=== PATIENT | female | born 2000 | race Caucasian/White ===

== ENCOUNTER → 2022-06-21 | Outpatient (CLI) | payer BC, SELFPAY ==
[2022-06-21 13:45] VITALS: BP 122/64; PULSE 62; RESP 16; TEMP 36.3; O2SAT 100; BMI 32.3
[2022-06-21] MEDS: 0.9% NaCl Peripheral Flush Adult/Peds IV (13:49)
[2022-06-21] MEDS: Ondansetron 4 MG/2 ML Vial IV (13:58)
[2022-06-21] MEDS: Dextrose 5%-Lactated Ringers 1,000 ML 999 ML IV (13:58)
[2022-06-21 15:15] VITALS: BP 144/56; PULSE 69; RESP 16
== END | disposition home or self-care (01) ==
PROVIDERS: Referring Provider Nurse Practitioner Women's Health; Visit Provider Nurse Practitioner Women's Health
DX: E86.0 Dehydration (principal)
CPT/HCPCS: 96372; 96365; 96361; A4216; J2405

== ENCOUNTER → 2022-07-07 | Outpatient (CLI) | payer BC, SELFPAY ==
[2022-07-10 22:06] LABS: Chlamydia By Nucleic Acid AMP Negative (Negative)
[2022-07-11 07:50] LABS: Gonococcus By Nucleic Acid AMP Negative (Negative)
== END | disposition home or self-care (01) ==
LOC: LABSPEC 16:53
PROVIDERS: Referring Provider Obstetrics & Gynecology; Visit Provider Obstetrics & Gynecology
DX: O09.90 Supervision of high risk pregnancy, unspecified, unspecified trimester (principal); Z3A.00 Weeks of gestation of pregnancy not specified
CPT/HCPCS: 87491; 87591

== ENCOUNTER → 2022-08-03 | Outpatient (CLI) | payer BC, SELFPAY ==
[2022-08-03 15:21] LABS: Absolute Lymphocyte Count 2.34 X10^3/uL (0.83-4.51); Absolute Neutrophil Count 5.1 X10^3/uL (2.0-7.7); Basophil# 0.04 X10^3/uL; Basophil% 0.5 % (0-1); Eosinophil# 0.09 X10^3/uL; Eosinophils% 1.1 % (0-5); Hemoglobin 12.9 g/dL (12.0-15.0); Lymphocyte # 2.34 X10^3/ul (0.83-4.51); Lymphocyte % 28.6 % (19-41); Mean Corp Hgb Conc 34.9 g/dL (32-36); Mean Corpuscular Hgb 28.6 pg (27.0-32.0); Mean Platelet Vol. 10.8 fl (6.2-12.0); Monocyte# 0.56 X10^3/uL; Monocyte% 6.8 % (0-10); NRBC Flagged by Analyzer 0 % (0-5); Neutrophil # 5.14 X10^3/uL (2.7-7.7); Neutrophil % 62.8 % (47-70); Platelet Count 210 K/mm3 (150-450); RBC Distribution Width CV 13.6 % (11.6-14.6); RBC Distribution Width SD 40.5 fl (35.1-43.9); Red Blood Count 4.51 M/mm3 (4.2-5.4); White Blood Count 8.2 K/mm3 (4.4-11.0)
[2022-08-03 16:08] LABS: NATERA MAILED SPECIMEN
[2022-08-03 16:21] LABS: HIV - WCH Non-Reactive (Nonreactive); Hepatitis B Surface Antigen Non-Reactive (Nonreactive); Hepatitis C Antibody Non-Reactive (Nonreactive); Rubella IgG Reactive (Nonreactive); Syphilis Antibodies Non-reactive
== END | disposition home or self-care (01) ==
PROVIDERS: Referring Provider Obstetrics & Gynecology; Visit Provider Obstetrics & Gynecology
DX: Z34.82 Encounter for supervision of other normal pregnancy, second trimester (principal); Z3A.00 Weeks of gestation of pregnancy not specified
CPT/HCPCS: 36415; 85025; 86703; 86762; 86780; 86803; 86850; 86900; 86901; 87086; 87088; 87340

== ENCOUNTER → 2022-09-28 | Outpatient (CLI) | payer BC, SELFPAY ==
[2022-09-28 15:03] LABS: Absolute Lymphocyte Count 2.39 X10^3/uL (0.83-4.51); Absolute Neutrophil Count 4.8 X10^3/uL (2.0-7.7); Basophil# 0.03 X10^3/uL; Basophil% 0.4 % (0-1); Eosinophil# 0.08 X10^3/uL; Hemoglobin 11.7 g/dL (12.0-15.0); Lymphocyte # 2.39 X10^3/ul (0.83-4.51); Lymphocyte % 30.3 % (19-41); Mean Corp Hgb Conc 34.4 g/dL (32-36); Mean Corpuscular Hgb 29.5 pg (27.0-32.0); Mean Corpuscular Volume 85.6 fL (81-99); Mean Platelet Vol. 11.1 fl (6.2-12.0); Monocyte% 7.6 % (0-10); NRBC Flagged by Analyzer 0 % (0-5); Neutrophil # 4.76 X10^3/uL (2.7-7.7); Neutrophil % 60.2 % (47-70); Platelet Count 195 K/mm3 (150-450); RBC Distribution Width CV 13.2 % (11.6-14.6); Red Blood Count 3.97 M/mm3 (4.2-5.4); White Blood Count 7.9 K/mm3 (4.4-11.0)
[2022-09-28 15:28] LABS: Glucose Challenge Gest 1H 50g 109 mg/dL (70-140)
[2022-09-28 16:17] LABS: HIV - WCH Non-Reactive (Nonreactive); Syphilis Antibodies Non-reactive
== END | disposition home or self-care (01) ==
LOC: PAVLAB 14:29
PROVIDERS: Referring Provider Advanced Practice Midwife; Visit Provider Advanced Practice Midwife
DX: Z34.90 Encounter for supervision of normal pregnancy, unspecified, unspecified trimester (principal)
CPT/HCPCS: 36415; 82950; 85025; 86703; 86780

== ENCOUNTER → 2022-11-16 | Outpatient (CLI) | payer BC, SELFPAY ==
[2022-11-16 13:17] LABS: Absolute Lymphocyte Count 2.36 X10^3/uL (0.83-4.51); Absolute Neutrophil Count 7.1 X10^3/uL (2.0-7.7); Basophil# 0.04 X10^3/uL; Basophil% 0.4 % (0-1); Eosinophil# 0.07 X10^3/uL; Eosinophils% 0.7 % (0-5); Hematocrit 35.7 % (37-47); Hemoglobin 11.7 g/dL (12.0-15.0); Lymphocyte # 2.36 X10^3/ul (0.83-4.51); Lymphocyte % 22.9 % (19-41); Mean Corp Hgb Conc 32.8 g/dL (32-36); Mean Corpuscular Hgb 28.4 pg (27.0-32.0); Mean Corpuscular Volume 86.7 fL (81-99); Mean Platelet Vol. 11.1 fl (6.2-12.0); Monocyte# 0.65 X10^3/uL; Monocyte% 6.3 % (0-10); NRBC Flagged by Analyzer 0 % (0-5); Neutrophil # 7.08 X10^3/uL (2.7-7.7); Neutrophil % 68.7 % (47-70); Platelet Count 235 K/mm3 (150-450); RBC Distribution Width CV 12.6 % (11.6-14.6); RBC Distribution Width SD 39.6 fl (35.1-43.9); Red Blood Count 4.12 M/mm3 (4.2-5.4); White Blood Count 10.3 K/mm3 (4.4-11.0)
[2022-11-16 13:35] LABS: Glucose Challenge Gest 1H 50g 95 mg/dL (70-140)
[2022-11-16 14:11] LABS: HIV - WCH Non-Reactive (Nonreactive); Syphilis Antibodies Non-reactive
== END | disposition home or self-care (01) ==
PROVIDERS: Referring Provider Obstetrics & Gynecology; Visit Provider Obstetrics & Gynecology
DX: O09.90 Supervision of high risk pregnancy, unspecified, unspecified trimester (principal); Z13.1 Encounter for screening for diabetes mellitus; Z3A.00 Weeks of gestation of pregnancy not specified
CPT/HCPCS: 36415; 82950; 85025; 86703; 86780

== ENCOUNTER → 2023-01-11 | Outpatient (CLI) | payer BC, SELFPAY | END | disposition home or self-care (01) | LOC: LABSPEC 13:30 | PROVIDERS: Referring Provider Obstetrics & Gynecology; Visit Provider Obstetrics & Gynecology | DX: Z34.90 Encounter for supervision of normal pregnancy, unspecified, unspecified trimester (principal) | CPT/HCPCS: 87081 ==

== ENCOUNTER 2023-01-26 17:12 | Outpatient (CLI) | payer BC, OTHER, SELFPAY ==
[2023-01-26 17:31] VITALS: BP 116/56; PULSE 68; TEMP 36.6; O2SAT 99
[2023-01-26 17:35] VITALS: BMI 37.5
--- NOTE | 2023-01-26 17:56 | OB.TRI.PN_ITS ---
Progress Notes Date of Service: 01/26/23 Progress Note: Patient presents for triage evaluation secondary to contractions FHT: 125 Moderate variability reactive no decelerations category I tracing Startex: mild irregular Contractions- no cervical change from office visit Assessment and plan: Reactive NST, reassuring maternal and status patient discharged to home to follow-up in office. See problem list details for additional plan information. Charges/Coding Multi Select Codes Urinary/Genital Urinary/Genital CPT Codes: 74126-99 non-stress test Interp Assessment & Plan (1) Uterine size-date discrepancy, third trimester: COMMENT: growth us (2) Obesity affecting , antepartum: COMMENT: 1 TM GCT, encouraged healthy weight gain start nsts at 37 (3) Supervision of high risk , antepartum: COMMENT: PRR BERNADETTE 02/09/23 girl Solar Jean (4) : QUALIFIERS: Weeks of gestation: 38 weeks Qualified Code(s): Z3A.38 - 38 weeks gestation of COMMENT: GBS Negative, NIPT low risk afp declined. Declines carrier screen. anatomy nl (5) Uterine contractions: COMMENT: no cervical change. reactive NST. D/C home
== END 2023-01-26 18:10 | disposition home or self-care (01) ==
LOC: WPOUT 17:19 → WP 17:20
PROVIDERS: Referring Provider Advanced Practice Midwife; Visit Provider Advanced Practice Midwife
DX: O47.1 False labor at or after 37 completed weeks of gestation (principal); Z3A.38 38 weeks gestation of pregnancy; O99.213 Obesity complicating pregnancy, third trimester; Z03.74 Encounter for suspected problem with fetal growth ruled out
CPT/HCPCS: 59025; 59050; 99221; G0378

== ENCOUNTER 2023-02-02 15:20 | Outpatient (CLI) | payer BC, OTHER, SELFPAY ==
[2023-02-02 15:59] VITALS: BP 109/61; PULSE 78
--- NOTE | 2023-02-02 16:03 | US_ITS ---
STUDY: OBSTETRICAL ULTRASOUND - BIOPHYSICAL PROFILE REASON FOR EXAM: Female, 22 years old decreased movement LMP: 05/05/2022 PRIOR ULTRASOUND: None. TECHNIQUE: Transabdominal TECHNICAL QUALITY: Adequate. FINDINGS: There is a single intrauterine fetus. The fetus is in a cephalic presentation. There is demonstrated cardiac activity with a heart rate of 140 bpm. There is a normal amniotic fluid volume. The largest amniotic fluid pocket measures 5.1 cm. The amniotic fluid index (ABIGAIL) is 16.2 cm. The placenta is posterior in location and is not low lying. There are Grade 1 placental changes. Age by LMP: 39 weeks, 0 days. BERNADETTE by LMP: 02/09/2023. BIOPHYSICAL PROFILE: Breathing Movements (FBM): 2 Gross Body Movements (GBM): 2 Tone (FT): 2 Amniotic Fluid Volume (AFV): 2 TOTAL SCORE: US/Biophysical Prof W/O Non Stres IMPRESSION: Normal biophysical profile of 10/31. Electronically Signed: Layton Haney MD at 17:23 EST ,
[2023-02-02 16:40] VITALS: BP 128/72; PULSE 78; TEMP 36.7
--- NOTE | 2023-02-02 21:45 | OB.TRI.NOTE ---
HPI - General General Date of Admission: 02/02/23 HPI Narrative RIGO ORR, is a 22 y/o @ 39 weeks 1 day who presents to L&D for prolonged monitoring due to anon-reactive NST in our office today. The NST was initially ordered for decreased movement. Maternal Data Information BERNADETTE Calculator Estimated Delivery Date Method Current WG Current Estimate 02/08/23 Ultrasound #1 39w 3d Other Estimates 01/31/23 LMP (Uncertain) 40w 4d PFSH PFSH Home Medications vitamin #56-iron 35 mg and 5 mg-folic acid 1 mg-dha capsule 1 cap PO QHS #30 caps 07/07/22 [Rx Last Taken 01/25/23 20:00] Allergy/AdvReac Type Severity Reaction Status Date / Time No Known Allergies Allergy Verified 02/02/23 14:48 Family History Grandmother Diabetes Uncle Diabetes Social History adopted: No household members: spouse current occupational status: unemployed pets and animals: Yes (litter box) pets and animals: cat(s) and dog(s) history of recent travel: Yes out of state: Yes sexually active: Yes Smoking Status: Former smoker alcohol intake: never substance use type: does not use caffeine: Yes Type: coffee Number of servings: 1 seatbelt use: always do you feel safe at home: Yes additional social history: Jean History 1 Elective abortions Hx Para Spontaneous abortions Hx # Term Pregnancies Ectopic pregnancies Hx # Pregnancies Multiple births # of living children Visit Details Expected Delivery Route/Plan Labor Preferences- CB/BF classes: discussed labor support person: Jean labor intervention preferences: pain management options preferred: epidural cut cord/dad catch: no : wants PP control planned: discussed discussed possible routes of delivery and associated risks: [] special requests: [] Plans Covid status: declines Flu vaccine: declines Tdap vaccine: declines Rhogam: NA LARC form signed: yes movement and labor precautions reviewed. Problem list reviewed and updated with the most current plan of care details and appropriate orders placed. Relevant counseling for the gestational age provided. Continue routine care and follow up unless otherwise noted in visit notes/problem list details OB Flowsheet Initial Weight: Not Recorded Date <del>?</del> EGA Weight BP Urine Prot <del>?</del> Glucose FHR FuHt Pres Dilation <del>?</del> Effaced St Visit Note 07/07/22 <del>?</del> 9w 1d 210 lb 8 oz 109/68 <del>?</del> 170 <del>?</del> SM- CRL cons with LMP SM- CRL 2.1cm NOT cons with LMP 08/03/22 <del>?</del> 13w 0d 213 lb 6 oz 120/66 Negative <del>?</del> Negative 170 <del>?</del> MH-NO VB. Nausea improving. PN labs and NIPT today 08/31/22 <del>?</del> 17w 0d 215 lb 4 oz 122/69 <del>?</del> 155 <del>?</del> JV- pt forgot to have blood drawn at the 1 hr ailyn after drinking glucola. will have to do it again. Has a dental infection. letter for dental treatment recommendations given for her to give to her dentist 09/28/22 <del>?</del> 21w 0d 217 lb 112/82 Negative <del>?</del> Negative 145 21 <del>?</del> kw-+fm. no lof/vb/ctx. glucose after appt today. afp declined. anatomy nl. 10/26/22 <del>?</del> 25w 0d 214 lb 4 oz 104/64 <del>?</del> 140 25 <del>?</del> SM- no vb lof good fm no regular ctx 11/16/22 <del>?</del> 28w 0d 221 lb 2 oz 130/80 Negative <del>?</del> Negative 152 28 <del>?</del> MH-No VB, LOF. Good FM. 28 wk labs, larc. Declines tdap. 11/30/22 <del>?</del> 30w 0d 226 lb 2 oz 113/70 Negative <del>?</del> Negative 140 31 <del>?</del> SM- no vb lof good fm n oreuglar ctx 12/14/22 <del>?</del> 32w 0d 227 lb 110/66 Negative <del>?</del> Negative 145 33 <del>?</del> JV- no lof, vaginal bleeding, or dec fm. start nsts at 37 weeks for bmi 12/28/22 <del>?</del> 34w 0d 227 lb 4 oz 128/60 Negative <del>?</del> Negative 130 35 <del>?</del> KW-no vb/lof/ctx. good fm. no concerns today 01/11/23 <del>?</del> 36w 0d 228 lb 6 oz 116/76 Negative <del>?</del> Negative 135 34 Cephalic 0 <del>?</del> SM- no vb lof good fm n oregualr ctx. gbs done growt US ordered 01/17/23 <del>?</del> 36w 6d 229 lb 4 oz 124/75 Negative <del>?</del> Negative 130 Cephalic <del>?</del> LC- reactive NST. no vb/ctx/lof. good fm. cephalic by us as nst hr found RUQ. gbs negative 01/25/23 <del>?</del> 38w 0d 233 lb 4 oz 109/66 Negative <del>?</del> Negative 130 39 1 <del>?</del> 60 -3 KW-no vb/lof/ctx. good fm. NST today. 02/02/23 <del>?</del> 39w 1d 235 lb 2 oz 106/66 Negative <del>?</del> Negative 130 <del>?</del> KW- decreased movement and nonreactive NST. To for evaluation and BPP. ROS Constitutional Constitutional: Reports systems reviewed and no addt'l complaints, except as documented Gastrointestinal Gastrointestinal: Denies bloating, constipation, cramping, diarrhea, nausea or vomiting Genitourinary Genitourinary: Reports other Details: Denies vaginal odor, vaginal bleeding, or vaginal discharge ; Denies difficulty urinating or flank pain NST FHR Rate Baby A Baseline: 140 Variability:: Moderate Accelerations:: 15 x 15 Decelerations:: None NST Reactive:: Yes FHR Category:: Category I Assessment & Plan (1) Decreased movement: (2) Uterine contractions: COMMENT: no cervical change. reactive NST. D/C home (3) Uterine size-date discrepancy, third trimester: COMMENT: growth us (4) Obesity affecting , antepartum: COMMENT: 1 TM GCT, encouraged healthy weight gain start nsts at 37 (5) Supervision of high risk , antepartum: COMMENT: PRR BERNADETTE 02/09/23 girl Solar Jean (6) : QUALIFIERS: Weeks of gestation: 39 weeks Qualified Code(s): Z3A.39 - 39 weeks gestation of COMMENT: GBS Negative, NIPT low risk afp declined. Declines carrier screen. anatomy nl PLAN: Plan nst is reactive on l&D bpp is 10/31 ok to dc to home with close outpatient follow up Charges/Coding Multi Select Codes Urinary/Genital Urinary/Genital CPT Codes: 76576-41 non-stress test Interp
--- NOTE | 2023-02-02 21:45 | OB.TRI.HP_ITS ---
HPI - General General Date of Admission: 02/02/23 HPI Narrative RIGO ORR, is a 22 y/o @ 39 weeks 1 day who presents to L&D for prolonged monitoring due to anon-reactive NST in our office today. The NST was initially ordered for decreased movement. Maternal Data Information BERNADETTE Calculator Estimated Delivery Date Method Current WG Current Estimate 02/08/23 Ultrasound #1 39w 3d Other Estimates 01/31/23 LMP (Uncertain) 40w 4d PFSH PFSH Home Medications vitamin #56-iron 35 mg and 5 mg-folic acid 1 mg-dha capsule 1 cap PO QHS #30 caps 07/07/22 [Rx Last Taken 01/25/23 20:00] Allergy/AdvReac Type Severity Reaction Status Date / Time No Known Allergies Allergy Verified 02/02/23 14:48 Family History Grandmother Diabetes Uncle Diabetes Social History adopted: No household members: spouse current occupational status: unemployed pets and animals: Yes (litter box) pets and animals: cat(s) and dog(s) history of recent travel: Yes out of state: Yes sexually active: Yes Smoking Status: Former smoker alcohol intake: never substance use type: does not use caffeine: Yes Type: coffee Number of servings: 1 seatbelt use: always do you feel safe at home: Yes additional social history: Jean History 1 Elective abortions Hx Para Spontaneous abortions Hx # Term Pregnancies Ectopic pregnancies Hx # Pregnancies Multiple births # of living children Visit Details Expected Delivery Route/Plan Labor Preferences- CB/BF classes: discussed labor support person: Jean labor intervention preferences: pain management options preferred: epidural cut cord/dad catch: no : wants PP control planned: discussed discussed possible routes of delivery and associated risks: [] special requests: [] Plans Covid status: declines Flu vaccine: declines Tdap vaccine: declines Rhogam: NA LARC form signed: yes movement and labor precautions reviewed. Problem list reviewed and updated with the most current plan of care details and appropriate orders placed. Relevant counseling for the gestational age provided. Continue routine care and follow up unless otherwise noted in visit notes/problem list details OB Flowsheet Initial Weight: Not Recorded Date -?-?-?-?-?-?-?-?-?-?-?-?- EGA Weight BP Urine Prot -?-?-?-?-?-?-?-?-?-?-?-?- Glucose FHR FuHt Pres Dilation -?-?-?-?-?-?-?-?-?-?-?-?- Effaced St Visit Note 07/07/22 -?-?-?-?-?-?-?-?-?-?-?-?- 9w 1d 210 lb 8 oz 109/68 -?-?-?-?-?-?-?-?-?-?-?-?- 170 -?-?-?-?-?-?-?-?-?-?-?-?- SM- CRL cons wit h LMP SM- CRL 2.1cm NOT cons with LMP 08/03/22 -?-?-?-?-?-?-?-?-?-?-?-?- 13w 0d 213 lb 6 oz 120/66 Nega tive -?-?-?-?-?-?-?-?-?-?-?-?- Negative 170 -?--?-?-?-?-?-?-?-?-?-?-?- MH-NO VB. Nausea improving. PN labs and NIPT today 08/31/22 -?-?-?-?-?-?-?-?-?-?-?-?- 17w 0d 215 lb 4 oz 122/69 -?-?-?-?-?-?-?-?-?-?-?-?- 155 -?-?-?-?-?-?-?-?-?-?-?-?- JV- pt forgot to have blood drawn at the 1 hr ailyn after drinking glucola. will have to do it again. Has a dental infection. letter for dental treatment recommendations given for her to give to her dentist 09/28/22 -?-?-?-?-?-?-?-?-?-?-?-?- 21w 0d 217 lb 112/82 Negative -?-?-?-?-?-?-?-?-?-?-?-?- Negative 145 21 -?-?-?-?-?-?-?-?-?-?-?-?- kw-+fm. no lof/v b/ctx. glucose after appt today. afp declined. anatomy nl. 10/26/22 -?-?-?-?-?-?--?-?-?-?-?-?- 25w 0d 214 lb 4 oz 104/64 -?-?-?-?-?-?-?-?-?-?-?-?- 140 25 -?-?-?-?-?-?-?-?-?-?-?-?- SM- no vb lof go od fm no regular ctx 11/16/22 -?-?-?-?-?-?-?-?-?-?-?-?- 28w 0d 221 lb 2 oz 130/80 Nega tive -?-?-?-?-?-?-?-?-?-?-?-?- Negative 152 28 -?-?-?-?-?-?-?-?-?-?-?-?- MH-No VB, LOF. G ood FM. 28 wk labs, larc. Declines tdap. 11/30/22 -?-?-?-?-?-?-?-?-?-?-?-?- 30w 0d 226 lb 2 oz 113/70 Nega tive -?-?-?-?-?-?-?-?-?-?-?-?- Negative 140 31 -?-?-?-?-?-?-?-?-?-?-?-?- SM- no vb lof go od fm n oreuglar ctx 12/14/22 -?-?-?-?-?-?-?-?-?-?-?-?- 32w 0d 227 lb 110/66 Negative -?-?-?-?-?-?-?-?-?-?-?-?- Negative 145 33 -?-?-?-?-?-?-?-?-?-?-?-?- JV- no lof, vagi nal bleeding, or dec fm. start nsts at 37 weeks for bmi 12/28/22 -?-?-?-?-?-?-?-?-?-?-?-?- 34w 0d 227 lb 4 oz 128/60 Nega tive -?-?-?-?-?-?-?-?-?-?-?-?- Negative 130 35 -?-?-?-?-?-?-?-?-?-?-?-?- KW-no vb/lof/ctx . good fm. no concerns today 01/11/23 -?-?-?-?-?-?-?-?-?-?-?-?- 36w 0d 228 lb 6 oz 116/76 Nega tive -?-?-?-?-?-?-?-?-?-?-?-?- Negative 135 34 Cephalic 0 -?-?-?-?-?-?-?-?-?-?-?-?- SM- no vb lof go od fm n oregualr ctx. gbs done growt US ordered 01/17/23 -?-?-?-?-?-?-?-?-?-?-?-?- 36w 6d 229 lb 4 oz 124/75 Nega tive -?-?-?-?-?-?-?-?-?-?-?-?- Negative 130 Cephalic -?-?-?-?-?-?-?-?-?-?-?-?- LC- reactive NST . no vb/ctx/lof. good fm. cephalic by us as nst hr found RUQ. gbs negative 01/25/23 -?-?-?-?-?-?-?-?-?-?-?-?- 38w 0d 233 lb 4 oz 109/66 Nega tive -?-?-?-?-?-?-?-?-?-?-?-?- Negative 130 39 1 -?-?-?-?-?-?-?-?-?-?-?-?- 60 -3 KW-no vb/l of/ctx. good fm. NST today. 02/02/23 -?-?-?-?-?-?-?-?-?-?-?-?- 39w 1d 235 lb 2 oz 106/66 Nega tive -?-?-?-?-?-?-?-?-?-?-?-?- Negative 130 -?-?-?-?-?-?-?-?-?-?-?-?- KW- decreased fe gunjan movement and nonreactive NST. To for evaluation and BPP. ROS Constitutional Constitutional: Reports systems reviewed and no addt'l complaints, except as documented Gastrointestinal Gastrointestinal: Denies bloating, constipation, cramping, diarrhea, nausea or vomiting Genitourinary Genitourinary: Reports other Details: Denies vaginal odor, vaginal bleeding, or vaginal discharge ; Denies difficulty urinating or flank pain NST FHR Rate Baby A Baseline: 140 Variability:: Moderate Accelerations:: 15 x 15 Decelerations:: None NST Reactive:: Yes FHR Category:: Category I Assessment & Plan (1) Decreased movement: (2) Uterine contractions: COMMENT: no cervical change. reactive NST. D/C home (3) Uterine size-date discrepancy, third trimester: COMMENT: growth us (4) Obesity affecting , antepartum: COMMENT: 1 TM GCT, encouraged healthy weight gain start nsts at 37 (5) Supervision of high risk , antepartum: COMMENT: PRR BERNADETTE 02/09/23 girl Solar Jean (6) : QUALIFIERS: Weeks of gestation: 39 weeks Qualified Code(s): Z3A.39 - 39 weeks gestation of COMMENT: GBS Negative, NIPT low risk afp declined. Declines carrier screen. anatomy nl PLAN: Plan nst is reactive on l&D bpp is 10/31 ok to dc to home with close outpatient follow up Charges/Coding Multi Select Codes Urinary/Genital Urinary/Genital CPT Codes: 97444-44 non-stress test Interp
== END 2023-02-02 17:30 | disposition home or self-care (01) ==
LOC: WPOUT 15:27 → WP 15:52
PROVIDERS: Referring Provider Registered Nurse; Visit Provider Registered Nurse
DX: O36.8130 Decreased fetal movements, third trimester, not applicable or unspecified (principal); Z3A.39 39 weeks gestation of pregnancy; O99.213 Obesity complicating pregnancy, third trimester
CPT/HCPCS: 59025; 59050; 76819

== ENCOUNTER 2023-02-12 15:25 | Outpatient (CLI) | payer BC, OTHER, SELFPAY ==
[2023-02-12 15:45] VITALS: BP 123/68; PULSE 81; TEMP 37.2; O2SAT 99
[2023-02-12 15:46] VITALS: PULSE 82; O2SAT 99
[2023-02-12 15:51] VITALS: BMI 36.8
--- NOTE | 2023-02-12 18:06 | OB.TRI.HP_ITS ---
HPI - General HPI Narrative RIGO ORR, is a 22 F who presents Maternal Data Information BERNADETTE Calculator Estimated Delivery Date Method Current WG Current Estimate 02/08/23 Ultrasound #1 40w 4d Other Estimates 01/31/23 LMP (Uncertain) 41w 5d PFSH PFSH Home Medications vitamin #56-iron 35 mg and 5 mg-folic acid 1 mg-dha capsule 1 cap PO QHS #30 caps 07/07/22 [Rx Last Taken 01/25/23 20:00] Allergy/AdvReac Type Severity Reaction Status Date / Time No Known Allergies Allergy Verified 02/12/23 15:51 Family History Grandmother Diabetes Uncle Diabetes Social History adopted: No household members: spouse current occupational status: unemployed pets and animals: Yes (litter box) pets and animals: cat(s) and dog(s) history of recent travel: Yes out of state: Yes sexually active: Yes Smoking Status: Former smoker alcohol intake: never substance use type: does not use caffeine: Yes Type: coffee Number of servings: 1 seatbelt use: always do you feel safe at home: Yes additional social history: Jean History 1 Elective abortions Hx Para Spontaneous abortions Hx # Term Pregnancies Ectopic pregnancies Hx # Pregnancies Multiple births # of living children Visit Details Expected Delivery Route/Plan Labor Preferences- CB/BF classes: discussed labor support person: Jean labor intervention preferences: pain management options preferred: epidural cut cord/dad catch: no : wants PP control planned: discussed discussed possible routes of delivery and associated risks: [] special requests: [] Plans Covid status: declines Flu vaccine: declines Tdap vaccine: declines Rhogam: NA LARC form signed: yes movement and labor precautions reviewed. Problem list reviewed and updated with the most current plan of care details and appropriate orders placed. Relevant counseling for the gestational age provided. Continue routine care and follow up unless otherwise noted in visit notes/problem list details OB Flowsheet Initial Weight: Not Recorded Date -?-?-?-?-?-?-?-?-?-?-?-?- EGA Weight BP Urine Prot -?-?-?-?-?-?-?-?-?-?-?-?- Glucose FHR FuHt Pres Dilation -?-?-?--?-?-?-?-?-?-?-?-?- Effaced St Visit Note 07/07/22 -?-?-?-?-?-?-?-?-?-?-?-?- 9w 1d 210 lb 8 oz 109/68 -?-?-?-?-?-?-?-?-?-?-?-?- 170 -?-?-?-?-?-?-?-?-?-?-?-?- SM- CRL cons wit h LMP SM- CRL 2.1cm NOT cons with LMP 08/03/22 -?-?--?-?-?-?-?-?-?-?-?-?- 13w 0d 213 lb 6 oz 120/66 Nega tive -?-?-?-?-?-?-?-?-?-?-?-?- Negative 170 -?-?-?-?-?-?-?-?-?-?-?-?- MH-NO VB. Nausea improving. PN labs and NIPT today 08/31/22 -?-?-?-?-?-?-?-?-?-?-?-?- 17w 0d 215 lb 4 oz 122/69 -?-?-?-?-?-?-?-?-?-?-?-?- 155 -?-?-?-?-?-?-?-?-?-?--?-?- JV- pt forgot to have blood drawn at the 1 hr ailyn after drinking glucola. will have to do it again. Has a dental infection. letter for dental treatment recommendations given for her to give to her dentist 09/28/22 -?-?-?-?-?-?-?-?-?-?-?-?- 21w 0d 217 lb 112/82 Negative -?-?-?-?-?-?-?-?-?-?-?-?- Negative 145 21 -?-?-?-?-?-?-?-?-?-?-?-?- kw-+fm. no lof/v b/ctx. glucose after appt today. afp declined. anatomy nl. 10/26/22 -?-?-?-?-?-?-?-?-?-?-?-?- 25w 0d 214 lb 4 oz 104/64 -?-?-?-?-?-?-?-?-?-?-?-?- 140 25 -?-?-?-?-?-?-?-?-?-?-?-?- SM- no vb lof go od fm no regular ctx 11/16/22 -?-?-?-?-?-?-?-?-?-?-?-?- 28w 0d 221 lb 2 oz 130/80 Nega tive -?-?-?-?-?-?-?-?-?-?-?-?- Negative 152 28 -?-?-?-?-?-?-?-?-?-?-?-?- MH-No VB, LOF. G ood FM. 28 wk labs, larc. Declines tdap. 11/30/22 -?-?-?-?-?-?-?-?-?-?-?-?- 30w 0d 226 lb 2 oz 113/70 Nega tive -?-?-?-?-?-?-?-?-?-?-?-?- Negative 140 31 -?-?--?-?-?-?-?-?-?-?-?-?- SM- no vb lof go od fm n oreuglar ctx 12/14/22 -?-?-?-?-?-?-?-?-?-?-?-?- 32w 0d 227 lb 110/66 Negative -?-?-?-?-?-?-?-?-?-?-?-?- Negative 145 33 -?-?-?-?-?-?-?-?-?-?-?-?- JV- no lof, vagi nal bleeding, or dec fm. start nsts at 37 weeks for bmi 12/28/22 -?-?-?-?-?-?-?-?-?-?-?-?- 34w 0d 227 lb 4 oz 128/60 Nega tive -?-?-?-?-?-?-?-?-?-?-?-?- Negative 130 35 -?-?-?-?-?-?-?-?-?-?-?-?- KW-no vb/lof/ctx . good fm. no concerns today 01/11/23 -?-?-?-?-?-?-?-?-?-?-?-?- 36w 0d 228 lb 6 oz 116/76 Nega tive -?-?-?-?-?-?-?-?-?-?-?-?- Negative 135 34 Cephalic 0 -?-?-?--?-?-?-?-?-?-?-?-?- SM- no vb lof go od fm n oregualr ctx. gbs done growt US ordered 01/17/23 -?-?-?-?-?-?-?-?-?-?-?-?- 36w 6d 229 lb 4 oz 124/75 Nega tive -?-?-?-?-?-?-?-?-?-?-?-?- Negative 130 Cephalic -?-?-?-?-?-?-?-?-?-?-?-?- LC- reactive NST . no vb/ctx/lof. good fm. cephalic by us as nst hr found RUQ. gbs negative 01/25/23 -?-?-?-?-?-?-?-?-?-?-?-?- 38w 0d 233 lb 4 oz 109/66 Nega tive -?-?-?-?-?-?-?-?-?-?-?-?- Negative 130 39 1 -?-?-?-?-?-?-?-?-?-?-?-?- 60 -3 KW-no vb/l of/ctx. good fm. NST today. 02/02/23 -?-?-?-?-?-?-?-?-?-?-?-?- 39w 1d 235 lb 2 oz 106/66 Nega tive -?-?-?-?-?-?-?-?-?-?-?-?- Negative 130 -?-?-?-?-?-?-?-?-?-?-?-?- KW- decreased fe gunjan movement and nonreactive NST. To for evaluation and BPP. 02/07/23 -?-?-?-?-?-?-?-?-?-?-?-?- 39w 6d 234 lb 2 oz 111/72 Nega tive -?-?-?-?-?-?-?-?-?-?-?-?- Negative 120 1 -?-?-?-?-?-?-?-?-?-?-?-?- 50 -3 LC- no vb/ ctx/lof. good fm. NST reactive. IOL set up for 41 weeks. Physical Exam Const alert, oriented x3 and no apparent distress Resp normal respiratory effort, normal air movement, no retractions and no use of accessory muscles Cardio regular rate and regular rhythm GI soft to palpation and non-tender Inspection: Palpation: soft Rectal Exam: deferred no CVA tenderness and external exam normal Bimanual Exam - Vag & Uterus: uterus non-tender and other gravid uterus, normal for gestational age OB / External & Speculum: Negative for herpetic lesions Manual OB Exam: estimated gestational size appropriate and presentation cephalic Amniotic Fluid: no amniotic fluid noted Extremity normal to inspection and full ROM Neuro Motor Exam: strength 5/5 throughout and muscle tone normal throughout Deep Tendon Reflexes: Rt Patellar (L4): 2+ and Lt Patellar (L4): 2+ NST FHR Rate Baby A Baseline: 125 Variability:: Moderate Accelerations:: 15 x 15 Decelerations:: None NST Reactive:: Yes FHR Category:: Category I Uterine Activity:: irregular Assessment & Plan (1) Uterine contractions: COMMENT: no cervical change. reactive NST. D/C home (2) Supervision of high risk , antepartum: COMMENT: PRR BERNADETTE 02/09/23 girl Solar Jean (3) : COMMENT: GBS Negative, NIPT low risk afp declined. Declines carrier screen. anatomy nl PLAN: Plan Patient presents for triage evaluation secondary to contractions. no cervical change. FHT: Moderate variability reactive no decelerations category I tracing [place]: irregular Contractions Assessment and plan: Reactive NST, reassuring maternal and status patient discharged to home to follow-up in office, has IOL scheduled for sunday. See problem list details for additional plan information. Charges/Coding Multi Select Codes Visit Charges Office Visit/Consults: 24850 OV L3 Est Urinary/Genital Urinary/Genital CPT Codes: 55961-84 non-stress test Interp
--- NOTE | 2023-02-12 18:06 | OB.TRI.NOTE ---
HPI - General HPI Narrative RIGO ORR, is a 22 F who presents Maternal Data Information BERNADETTE Calculator Estimated Delivery Date Method Current WG Current Estimate 02/08/23 Ultrasound #1 40w 4d Other Estimates 01/31/23 LMP (Uncertain) 41w 5d PFSH PFSH Home Medications vitamin #56-iron 35 mg and 5 mg-folic acid 1 mg-dha capsule 1 cap PO QHS #30 caps 07/07/22 [Rx Last Taken 01/25/23 20:00] Allergy/AdvReac Type Severity Reaction Status Date / Time No Known Allergies Allergy Verified 02/12/23 15:51 Family History Grandmother Diabetes Uncle Diabetes Social History adopted: No household members: spouse current occupational status: unemployed pets and animals: Yes (litter box) pets and animals: cat(s) and dog(s) history of recent travel: Yes out of state: Yes sexually active: Yes Smoking Status: Former smoker alcohol intake: never substance use type: does not use caffeine: Yes Type: coffee Number of servings: 1 seatbelt use: always do you feel safe at home: Yes additional social history: Jean History 1 Elective abortions Hx Para Spontaneous abortions Hx # Term Pregnancies Ectopic pregnancies Hx # Pregnancies Multiple births # of living children Visit Details Expected Delivery Route/Plan Labor Preferences- CB/BF classes: discussed labor support person: Jean labor intervention preferences: pain management options preferred: epidural cut cord/dad catch: no : wants PP control planned: discussed discussed possible routes of delivery and associated risks: [] special requests: [] Plans Covid status: declines Flu vaccine: declines Tdap vaccine: declines Rhogam: NA LARC form signed: yes movement and labor precautions reviewed. Problem list reviewed and updated with the most current plan of care details and appropriate orders placed. Relevant counseling for the gestational age provided. Continue routine care and follow up unless otherwise noted in visit notes/problem list details OB Flowsheet Initial Weight: Not Recorded Date <del>?</del> EGA Weight BP Urine Prot <del>?</del> Glucose FHR FuHt Pres Dilation <del>?</del> Effaced St Visit Note 07/07/22 <del>?</del> 9w 1d 210 lb 8 oz 109/68 <del>?</del> 170 <del>?</del> SM- CRL cons with LMP SM- CRL 2.1cm NOT cons with LMP 08/03/22 <del>?</del> 13w 0d 213 lb 6 oz 120/66 Negative <del>?</del> Negative 170 <del>?</del> MH-NO VB. Nausea improving. PN labs and NIPT today 08/31/22 <del>?</del> 17w 0d 215 lb 4 oz 122/69 <del>?</del> 155 <del>?</del> JV- pt forgot to have blood drawn at the 1 hr ailyn after drinking glucola. will have to do it again. Has a dental infection. letter for dental treatment recommendations given for her to give to her dentist 09/28/22 <del>?</del> 21w 0d 217 lb 112/82 Negative <del>?</del> Negative 145 21 <del>?</del> kw-+fm. no lof/vb/ctx. glucose after appt today. afp declined. anatomy nl. 10/26/22 <del>?</del> 25w 0d 214 lb 4 oz 104/64 <del>?</del> 140 25 <del>?</del> SM- no vb lof good fm no regular ctx 11/16/22 <del>?</del> 28w 0d 221 lb 2 oz 130/80 Negative <del>?</del> Negative 152 28 <del>?</del> MH-No VB, LOF. Good FM. 28 wk labs, larc. Declines tdap. 11/30/22 <del>?</del> 30w 0d 226 lb 2 oz 113/70 Negative <del>?</del> Negative 140 31 <del>?</del> SM- no vb lof good fm n oreuglar ctx 12/14/22 <del>?</del> 32w 0d 227 lb 110/66 Negative <del>?</del> Negative 145 33 <del>?</del> JV- no lof, vaginal bleeding, or dec fm. start nsts at 37 weeks for bmi 12/28/22 <del>?</del> 34w 0d 227 lb 4 oz 128/60 Negative <del>?</del> Negative 130 35 <del>?</del> KW-no vb/lof/ctx. good fm. no concerns today 01/11/23 <del>?</del> 36w 0d 228 lb 6 oz 116/76 Negative <del>?</del> Negative 135 34 Cephalic 0 <del>?</del> SM- no vb lof good fm n oregualr ctx. gbs done growt US ordered 01/17/23 <del>?</del> 36w 6d 229 lb 4 oz 124/75 Negative <del>?</del> Negative 130 Cephalic <del>?</del> LC- reactive NST. no vb/ctx/lof. good fm. cephalic by us as nst hr found RUQ. gbs negative 01/25/23 <del>?</del> 38w 0d 233 lb 4 oz 109/66 Negative <del>?</del> Negative 130 39 1 <del>?</del> 60 -3 KW-no vb/lof/ctx. good fm. NST today. 02/02/23 <del>?</del> 39w 1d 235 lb 2 oz 106/66 Negative <del>?</del> Negative 130 <del>?</del> KW- decreased movement and nonreactive NST. To for evaluation and BPP. 02/07/23 <del>?</del> 39w 6d 234 lb 2 oz 111/72 Negative <del>?</del> Negative 120 1 <del>?</del> 50 -3 LC- no vb/ctx/lof. good fm. NST reactive. IOL set up for 41 weeks. Physical Exam Const alert, oriented x3 and no apparent distress Resp normal respiratory effort, normal air movement, no retractions and no use of accessory muscles Cardio regular rate and regular rhythm GI soft to palpation and non-tender Inspection: Palpation: soft Rectal Exam: deferred no CVA tenderness and external exam normal Bimanual Exam - Vag & Uterus: uterus non-tender and other gravid uterus, normal for gestational age OB / External & Speculum: Negative for herpetic lesions Manual OB Exam: estimated gestational size appropriate and presentation cephalic Amniotic Fluid: no amniotic fluid noted Extremity normal to inspection and full ROM Neuro Motor Exam: strength 5/5 throughout and muscle tone normal throughout Deep Tendon Reflexes: Rt Patellar (L4): 2+ and Lt Patellar (L4): 2+ NST FHR Rate Baby A Baseline: 125 Variability:: Moderate Accelerations:: 15 x 15 Decelerations:: None NST Reactive:: Yes FHR Category:: Category I Uterine Activity:: irregular Assessment & Plan (1) Uterine contractions: COMMENT: no cervical change. reactive NST. D/C home (2) Supervision of high risk , antepartum: COMMENT: PRR BRENADETTE 02/09/23 girl Solar Jean (3) : COMMENT: GBS Negative, NIPT low risk afp declined. Declines carrier screen. anatomy nl PLAN: Plan Patient presents for triage evaluation secondary to contractions. no cervical change. FHT: Moderate variability reactive no decelerations category I tracing [place]: irregular Contractions Assessment and plan: Reactive NST, reassuring maternal and status patient discharged to home to follow-up in office, has IOL scheduled for sunday. See problem list details for additional plan information. Charges/Coding Multi Select Codes Visit Charges Office Visit/Consults: 37569 OV L3 Est Urinary/Genital Urinary/Genital CPT Codes: 36363-28 non-stress test Interp
== END 2023-02-12 18:15 | disposition home or self-care (01) ==
LOC: WPOUT 15:33 → WP 15:34
PROVIDERS: Referring Provider Registered Nurse; Visit Provider Registered Nurse
DX: O47.1 False labor at or after 37 completed weeks of gestation (principal); Z87.891 Personal history of nicotine dependence; Z3A.39 39 weeks gestation of pregnancy
CPT/HCPCS: 59025; 59050

== ENCOUNTER 2023-02-16 06:55 | Inpatient (IN) | payer BC, OTHER, SELFPAY ==
[2023-02-16] VITALS (58 sets, daily range): BP systolic 96–140; BP diastolic 44–76; PULSE 67–119; TEMP 36.4–37.9; O2SAT 98–100; BMI 37.0
[2023-02-16] MEDS: Lactated Ringers 1,000 ML 50 ML IV (07:45)
[2023-02-16 08:06] LABS: Absolute Lymphocyte Count 2.28 X10^3/uL (0.83-4.51); Absolute Neutrophil Count 6.4 X10^3/uL (2.0-7.7); Basophil# 0.04 X10^3/uL; Basophil% 0.4 % (0-1); Eosinophil# 0.08 X10^3/uL; Eosinophils% 0.8 % (0-5); Hematocrit 33.7 % (37-47); Hemoglobin 10.6 g/dL (12.0-15.0); Lymphocyte # 2.28 X10^3/ul (0.83-4.51); Mean Corp Hgb Conc 31.5 g/dL (32-36); Mean Corpuscular Hgb 24.1 pg (27.0-32.0); Mean Corpuscular Volume 76.6 fL (81-99); Monocyte# 0.62 X10^3/uL; Monocyte% 6.5 % (0-10); NRBC Flagged by Analyzer 0 % (0-5); Neutrophil # 6.43 X10^3/uL (2.7-7.7); Neutrophil % 67.8 % (47-70); Platelet Count 205 K/mm3 (150-450); RBC Distribution Width CV 14.9 % (11.6-14.6); RBC Distribution Width SD 40.8 fl (35.1-43.9); White Blood Count 9.5 K/mm3 (4.4-11.0)
[2023-02-16] MEDS: 0.9% Normal Saline Single 100 ML IV.SOLN. INTRA-UTER (08:32)
[2023-02-16] MEDS: Oxytocin 15 Units/NS 250ml 15 UNITS/250 ML IV.SOLN 2 UNITS IV (08:40)
--- NOTE | 2023-02-16 08:55 | HP.PCM.OB_ITS ---
HPI - General General Date of Admission: 02/16/23 HPI Narrative RIGO ORR, is a 22 F who presents for IOL secondary to postdates. she denies any vb lof admits good fm co regular ct q 5 minutes Maternal Data Information BERNADETTE Calculator Estimated Delivery Date Method Current WG Current Estimate 02/08/23 Ultrasound #1 41w 1d Other Estimates 01/31/23 LMP (Uncertain) 42w 2d PFSH PFSH Medical History Former smoker Home Medications vitamin #56-iron 35 mg and 5 mg-folic acid 1 mg-dha capsule 1 cap PO QHS #30 caps 07/07/22 [Rx Last Taken 02/15/23] Allergy/AdvReac Type Severity Reaction Status Date / Time No Known Allergies Allergy Verified 02/12/23 15:51 Family History Grandmother Diabetes Uncle Diabetes Surgical History (Updated 02/16/23 @ 08:57 by Monique Banuelos) History of tonsillectomy Social History adopted: No household members: spouse current occupational status: unemployed pets and animals: Yes (litter box) pets and animals: cat(s) and dog(s) history of recent travel: Yes out of state: Yes sexually active: Yes Smoking Status: Former smoker alcohol intake: never substance use type: does not use caffeine: Yes Type: coffee Number of servings: 1 seatbelt use: always do you feel safe at home: Yes additional social history: Jean History 1 Elective abortions Hx Para 0 Spontaneous abortions Hx # Term Pregnancies Ectopic pregnancies Hx # Pregnancies Multiple births # of living children Visit Details Expected Delivery Route/Plan Labor Preferences- CB/BF classes: discussed labor support person: Jean labor intervention preferences: pain management options preferred: epidural cut cord/dad catch: no : wants PP control planned: discussed discussed possible routes of delivery and associated risks: [] special requests: [] Plans Covid status: declines Flu vaccine: declines Tdap vaccine: declines Rhogam: NA LARC form signed: yes movement and labor precautions reviewed. Problem list reviewed and updated with the most current plan of care details and appropriate orders placed. Relevant counseling for the gestational age provided. Continue routine care and follow up unless otherwise noted in visit notes/problem list details OB Flowsheet Initial Weight: Not Recorded Date -?-?-?-?-?-?-?-?-?-?-?-?- EGA Weight BP Urine Prot -?-?-?-?-?-?-?-?-?-?-?-?- Glucose FHR FuHt Pres Dilation -?-?-?-?-?-?-?-?-?-?-?-?- Effaced St Visit Note 07/07/22 -?-?-?-?-?-?-?-?-?-?-?-?- 9w 1d 210 lb 8 oz 109/68 -?-?-?-?-?--?-?-?-?-?-?-?- 170 -?-?-?-?-?-?-?-?-?-?-?-?- SM- CRL cons wit h LMP SM- CRL 2.1cm NOT cons with LMP 08/03/22 -?-?-?-?-?-?-?-?-?-?-?-?- 13w 0d 213 lb 6 oz 120/66 Nega tive -?-?-?-?-?-?-?-?-?-?-?-?- Negative 170 -?-?-?-?-?-?-?-?-?-?-?-?- MH-NO VB. Nausea improving. PN labs and NIPT today 08/31/22 -?-?-?-?-?-?-?-?-?-?-?-?- 17w 0d 215 lb 4 oz 122/69 -?-?-?-?-?-?-?-?-?-?-?-?- 155 -?-?-?-?-?-?-?-?-?-?-?-?- JV- pt forgot to have blood drawn at the 1 hr ailyn after drinking glucola. will have to do it again. Has a dental infection. letter for dental treatment recommendations given for her to give to her dentist 09/28/22 -?-?-?-?-?-?-?-?-?-?-?-?- 21w 0d 217 lb 112/82 Negative -?-?-?-?-?-?-?-?-?-?-?-?- Negative 145 21 -?-?-?-?-?-?-?-?-?-?-?-?- kw-+fm. no lof/v b/ctx. glucose after appt today. afp declined. anatomy nl. 10/26/22 -?-?-?-?-?-?-?-?-?-?-?-?- 25w 0d 214 lb 4 oz 104/64 -?-?-?-?-?-?-?-?-?-?-?-?- 140 25 -?-?-?-?-?-?-?-?-?-?-?-?- SM- no vb lof go od fm no regular ctx 11/16/22 -?-?-?-?-?-?-?-?-?-?-?-?- 28w 0d 221 lb 2 oz 130/80 Nega tive -?-?-?-?-?-?-?-?-?-?-?-?- Negative 152 28 -?-?-?-?-?-?-?-?-?-?-?-?- MH-No VB, LOF. G ood FM. 28 wk labs, larc. Declines tdap. 11/30/22 -?-?-?-?-?-?-?-?-?-?-?-?- 30w 0d 226 lb 2 oz 113/70 Nega tive -?-?-?-?-?-?-?-?-?-?-?-?- Negative 140 31 -?-?-?-?-?-?-?-?-?-?-?-?- SM- no vb lof go od fm n oreuglar ctx 12/14/22 -?-?-?-?-?-?-?-?-?-?-?-?- 32w 0d 227 lb 110/66 Negative -?-?-?-?-?-?-?-?-?-?-?-?- Negative 145 33 -?-?-?-?-?-?-?-?-?-?-?-?- JV- no lof, vagi nal bleeding, or dec fm. start nsts at 37 weeks for bmi 12/28/22 -?-?-?-?-?-?-?-?-?-?-?-?- 34w 0d 227 lb 4 oz 128/60 Nega tive -?-?-?-?-?-?-?-?-?-?-?-?- Negative 130 35 -?-?-?-?-?-?-?-?-?-?-?-?- KW-no vb/lof/ctx . good fm. no concerns today 01/11/23 -?-?-?-?-?-?-?-?-?-?-?-?- 36w 0d 228 lb 6 oz 116/76 Nega tive -?-?-?-?-?-?-?-?-?-?-?-?- Negative 135 34 Cephalic 0 -?-?-?-?-?-?-?-?-?-?-?-?- SM- no vb lof go od fm n oregualr ctx. gbs done growt US ordered 01/17/23 -?-?-?-?-?-?-?-?-?-?-?-?- 36w 6d 229 lb 4 oz 124/75 Nega tive -?-?-?-?-?-?-?-?-?-?-?-?- Negative 130 Cephalic -?-?-?-?-?-?-?-?-?-?-?-?- LC- reactive NST . no vb/ctx/lof. good fm. cephalic by us as nst hr found RUQ. gbs negative 01/25/23 -?-?-?-?-?-?-?-?-?-?-?-?- 38w 0d 233 lb 4 oz 109/66 Nega tive -?-?-?-?-?-?-?-?-?-?-?-?- Negative 130 39 1 -?-?-?-?-?-?-?-?-?-?-?-?- 60 -3 KW-no vb/l of/ctx. good fm. NST today. 02/02/23 -?-?-?-?-?-?-?-?-?-?-?-?- 39w 1d 235 lb 2 oz 106/66 Nega tive -?-?-?-?-?-?-?-?-?-?-?-?- Negative 130 -?-?-?-?-?-?-?-?-?-?-?-?- KW- decreased fe gunjan movement and nonreactive NST. To WP for evaluation and BPP. 02/07/23 -?-?-?-?-?-?-?-?-?-?-?-?- 39w 6d 234 lb 2 oz 111/72 Nega tive -?-?-?-?-?-?-?-?-?-?-?-?- Negative 120 1 -?-?-?-?-?-?-?-?-?-?-?-?- 50 -3 LC- no vb/ ctx/lof. good fm. NST reactive. IOL set up for 41 weeks. Vital Signs Vital Signs Vital Signs: 02/16/23 07:27 02/16/23 07:28 02/16/23 07:28 Temperature Temperature Source Pulse Rate 79 Blood Pressure 123/66 H BP Systolic 123 BP Diastolic 66 Pulse Ox 98 02/16/23 07:28 02/16/23 07:28 Temperature 98.4 F Temperature Source Temporal Pulse Rate Blood Pressure BP Systolic BP Diastolic Pulse Ox Weight Weight: 237 lb Body Mass Index (BMI) 37.0 Labs Labs Labs: Blood Type A POSITIVE Antibody Screen NEGATIVE Hct 33.7 % (37-47) L Hgb 10.6 g/dL (12.0-15.0) L Syphilis Total Ab Non-reactive Rubella IgG Antibody Reactive (Nonreactive) Hep Bs Antigen Non-Reactive (Nonreactive) Hepatitis C Antibody Non-Reactive (Nonreactive) Chlamydia DNA (RODNEY) Negative (Negative) N.gonorrhoeae DNA (RODNEY) Negative (Negative) HIV 1&2 Antibody Non-Reactive (Nonreactive) Glucose 1 Hr 50 gm 95 mg/dL (70-140) Assessment & Plan (1) Obesity affecting , antepartum: COMMENT: 1 TM GCT, encouraged healthy weight gain start nsts at 37 (2) Supervision of high risk , antepartum: COMMENT: PRR BERNADETTE 02/09/23 girl Solar Jean (3) : COMMENT: GBS Negative, NIPT low risk afp declined. Declines carrier screen. anatomy nl (4) Encounter for induction of labor: PLAN: Plan Patient presents IOL, plan management for with fb pitocin/AROM. Pain management: plans epidural. GBS negative. Management of any complications: none I have reviewed the PFSH and made any clinically relevant updates.
--- NOTE | 2023-02-16 08:55 | PCM.HP.OB ---
HPI - General General Date of Admission: 02/16/23 HPI Narrative RIGO ORR, is a 22 F who presents for IOL secondary to postdates. she denies any vb lof admits good fm co regular ct q 5 minutes Maternal Data Information BERNADETTE Calculator Estimated Delivery Date Method Current WG Current Estimate 02/08/23 Ultrasound #1 41w 1d Other Estimates 01/31/23 LMP (Uncertain) 42w 2d PFSH PFSH Medical History Former smoker Home Medications vitamin #56-iron 35 mg and 5 mg-folic acid 1 mg-dha capsule 1 cap PO QHS #30 caps 07/07/22 [Rx Last Taken 02/15/23] Allergy/AdvReac Type Severity Reaction Status Date / Time No Known Allergies Allergy Verified 02/12/23 15:51 Family History Grandmother Diabetes Uncle Diabetes Surgical History (Updated 02/16/23 @ 08:57 by Monique Banuelos) History of tonsillectomy Social History adopted: No household members: spouse current occupational status: unemployed pets and animals: Yes (litter box) pets and animals: cat(s) and dog(s) history of recent travel: Yes out of state: Yes sexually active: Yes Smoking Status: Former smoker alcohol intake: never substance use type: does not use caffeine: Yes Type: coffee Number of servings: 1 seatbelt use: always do you feel safe at home: Yes additional social history: Jean History 1 Elective abortions Hx Para 0 Spontaneous abortions Hx # Term Pregnancies Ectopic pregnancies Hx # Pregnancies Multiple births # of living children Visit Details Expected Delivery Route/Plan Labor Preferences- CB/BF classes: discussed labor support person: Jean labor intervention preferences: pain management options preferred: epidural cut cord/dad catch: no : wants PP control planned: discussed discussed possible routes of delivery and associated risks: [] special requests: [] Plans Covid status: declines Flu vaccine: declines Tdap vaccine: declines Rhogam: NA LARC form signed: yes movement and labor precautions reviewed. Problem list reviewed and updated with the most current plan of care details and appropriate orders placed. Relevant counseling for the gestational age provided. Continue routine care and follow up unless otherwise noted in visit notes/problem list details OB Flowsheet Initial Weight: Not Recorded Date <del>?</del> EGA Weight BP Urine Prot <del>?</del> Glucose FHR FuHt Pres Dilation <del>?</del> Effaced St Visit Note 07/07/22 <del>?</del> 9w 1d 210 lb 8 oz 109/68 <del>?</del> 170 <del>?</del> SM- CRL cons with LMP SM- CRL 2.1cm NOT cons with LMP 08/03/22 <del>?</del> 13w 0d 213 lb 6 oz 120/66 Negative <del>?</del> Negative 170 <del>?</del> MH-NO VB. Nausea improving. PN labs and NIPT today 08/31/22 <del>?</del> 17w 0d 215 lb 4 oz 122/69 <del>?</del> 155 <del>?</del> JV- pt forgot to have blood drawn at the 1 hr ailyn after drinking glucola. will have to do it again. Has a dental infection. letter for dental treatment recommendations given for her to give to her dentist 09/28/22 <del>?</del> 21w 0d 217 lb 112/82 Negative <del>?</del> Negative 145 21 <del>?</del> kw-+fm. no lof/vb/ctx. glucose after appt today. afp declined. anatomy nl. 10/26/22 <del>?</del> 25w 0d 214 lb 4 oz 104/64 <del>?</del> 140 25 <del>?</del> SM- no vb lof good fm no regular ctx 11/16/22 <del>?</del> 28w 0d 221 lb 2 oz 130/80 Negative <del>?</del> Negative 152 28 <del>?</del> MH-No VB, LOF. Good FM. 28 wk labs, larc. Declines tdap. 11/30/22 <del>?</del> 30w 0d 226 lb 2 oz 113/70 Negative <del>?</del> Negative 140 31 <del>?</del> SM- no vb lof good fm n oreuglar ctx 12/14/22 <del>?</del> 32w 0d 227 lb 110/66 Negative <del>?</del> Negative 145 33 <del>?</del> JV- no lof, vaginal bleeding, or dec fm. start nsts at 37 weeks for bmi 12/28/22 <del>?</del> 34w 0d 227 lb 4 oz 128/60 Negative <del>?</del> Negative 130 35 <del>?</del> KW-no vb/lof/ctx. good fm. no concerns today 01/11/23 <del>?</del> 36w 0d 228 lb 6 oz 116/76 Negative <del>?</del> Negative 135 34 Cephalic 0 <del>?</del> SM- no vb lof good fm n oregualr ctx. gbs done growt US ordered 01/17/23 <del>?</del> 36w 6d 229 lb 4 oz 124/75 Negative <del>?</del> Negative 130 Cephalic <del>?</del> LC- reactive NST. no vb/ctx/lof. good fm. cephalic by us as nst hr found RUQ. gbs negative 01/25/23 <del>?</del> 38w 0d 233 lb 4 oz 109/66 Negative <del>?</del> Negative 130 39 1 <del>?</del> 60 -3 KW-no vb/lof/ctx. good fm. NST today. 02/02/23 <del>?</del> 39w 1d 235 lb 2 oz 106/66 Negative <del>?</del> Negative 130 <del>?</del> KW- decreased movement and nonreactive NST. To for evaluation and BPP. 02/07/23 <del>?</del> 39w 6d 234 lb 2 oz 111/72 Negative <del>?</del> Negative 120 1 <del>?</del> 50 -3 LC- no vb/ctx/lof. good fm. NST reactive. IOL set up for 41 weeks. Vital Signs Vital Signs Vital Signs: 02/16/23 07:27 02/16/23 07:28 02/16/23 07:28 Temperature Temperature Source Pulse Rate 79 Blood Pressure 123/66 H BP Systolic 123 BP Diastolic 66 Pulse Ox 98 02/16/23 07:28 02/16/23 07:28 Temperature 98.4 F Temperature Source Temporal Pulse Rate Blood Pressure BP Systolic BP Diastolic Pulse Ox Weight Weight: 237 lb Body Mass Index (BMI) 37.0 Labs Labs Labs: Blood Type A POSITIVE Antibody Screen NEGATIVE Hct 33.7 % (37-47) L Hgb 10.6 g/dL (12.0-15.0) L Syphilis Total Ab Non-reactive Rubella IgG Antibody Reactive (Nonreactive) Hep Bs Antigen Non-Reactive (Nonreactive) Hepatitis C Antibody Non-Reactive (Nonreactive) Chlamydia DNA (RODNEY) Negative (Negative) N.gonorrhoeae DNA (RODNEY) Negative (Negative) HIV 1&2 Antibody Non-Reactive (Nonreactive) Glucose 1 Hr 50 gm 95 mg/dL (70-140) Assessment & Plan (1) Obesity affecting , antepartum: COMMENT: 1 TM GCT, encouraged healthy weight gain start nsts at 37 (2) Supervision of high risk , antepartum: COMMENT: PRR BERNADETTE 02/09/23 girl Solar Jean (3) : COMMENT: GBS Negative, NIPT low risk afp declined. Declines carrier screen. anatomy nl (4) Encounter for induction of labor: PLAN: Plan Patient presents IOL, plan management for with fb pitocin/AROM. Pain management: plans epidural. GBS negative. Management of any complications: none [facility] and made any clinically relevant updates.
[2023-02-16 09:35] LABS: Syphilis Antibodies Non-reactive
[2023-02-16] MEDS: fentaNYL-bupivacaine (epidural) 100 ML BAG EPIDURAL ×3 (11:09→19:24)
[2023-02-16] MEDS: LACTATED RINGERS 500 ML 999 ML IV (12:29)
--- NOTE | 2023-02-16 15:06 | PCM.PN.BLA ---
Progress Note arom clear fluid and iupc placed earlier current tracing: FHT: 130-140 min-Moderate variability reactive early decelerations occasional isolate variable overall category II tracing but reassuring Radar Base: q 2-3 Contractions reviewed tracing abnormalities since last note: see above A/P: pit per protocol reviewed with nursing has been only at 2 mU due to min variability and few variables earlier, but no cervical change and then cat I tracing developed so pit increased 1 mU. now early decels min- mod variability
[2023-02-16] MEDS: Lactated Ringers 1,000 ML 200 ML IV ×2 (15:52→20:48)
--- NOTE | 2023-02-16 23:15 | EX.PCM.OBRPT ---
Assessment & Plan (1) Encounter for induction of labor: (2) Obesity affecting , antepartum: COMMENT: 1 TM GCT, encouraged healthy weight gain start nsts at 37 (3) Supervision of high risk , antepartum: COMMENT: PRR BERNADETTE 02/09/23 girl Solar Jean (4) : COMMENT: GBS Negative, NIPT low risk afp declined. Declines carrier screen. anatomy nl Maternal Data Information BERNADETTE Calculator Estimated Delivery Date Method Current WG Current Estimate 02/08/23 Ultrasound #1 41w 1d Other Estimates 01/31/23 LMP (Uncertain) 42w 2d Vaginal Delivery Operative Information Date of Procedure: 02/16/23 Pre-Operative Diagnosis: see a/p diagnoses Post-Operative Diagnosis: same Surgery / Procedure Performed: Spontaneous Vaginal Delivery Type of Anesthesia: Epidural Special Medications: none Estimated Blood Loss: 200 Fluids Replaced: crystalloid Findings Description of Procedure: Patient began pushing and delivered the head in the MARCY presentation. The head was delivered atraumatically . The anterior and posterior shoulders delivered without complication followed by the rest of the and the infant was placed on the maternal abdomen. Delayed cord clamping was employed for approximately 60 seconds. Cord was clamped and cut and gentle traction was applied to the cord and the placenta delivered spontaneously immediately following it was noted to be intact with three-vessel cord. The perineum and vagina were inspected and noted to have a first degree right vaginal laceration which was repaired in the usual fashion with 3-0 vicryl rapide. . EBL was 200 cc. Patient and tolerated delivery well. Amniotic Fluid Description: Clear Placental Delivery Description: Spontaneous Placenta Disposition: [facility] Cord Vessel Description: 3 Vessels Cord Entanglement: None Delayed Cord Clamping: Yes Post Vaginal Delivery Medications Given After Delivery: IV Pitocin Episiotomy Description: None Complication Complications: None Procedures Urinary/Genital [id number]: [id number] Vaginal Delivery [facility]
--- NOTE | 2023-02-16 23:16 | DCINST_ITS ---
Discharge Instructions Diet Discharge Diet: No restrictions Activity Discharge Activity: Return to Normal Activity, May Not Drive (while taking narcotic pain medications.) and May Shower May resume sexual activity in: 4-6 weeks Dressing / Incision Call your doctor if your incision/area has: Continuous Slow Oozing, Sudden Increased Bleeding, Increased Pain/ Swelling, Increased Redness and Foul Smelling Discharge Follow Up Care Please Follow Up With: Monica Julian MD When: Call [phone] to make an appointment with your doctor in 6 weeks. If you had elevated blood pressure or 4th degree laceration, you will need to be seen in 2 weeks. Test Results: Test results from this visit will be discussed in further detail at your follow- up appointment, if applicable. Discharge Plan Admission Admit Date/Time: 02/16/23 06:55 Attending Provider: Monica Julian Primary Care Provider: Care Physician,Bernadine Primary Discharge Orders/Prescriptions Prescriptions: No Action PNV #[id number] acid-dha 35 mg iron-5 mg iron-1 mg capsule 1 cap PO QHS Qty: 30 12RF Referrals / Follow Up: Care Physician,No Primary [Primary Care Provider] -
[2023-02-16] MEDS: Oxytocin 15 Units/NS 250ml 15 UNITS/250 ML IV.SOLN 83 UNITS IV (23:42)
[2023-02-17] VITALS (12 sets, daily range): BP systolic 116–132; BP diastolic 54–66; PULSE 70–86; RESP 16; TEMP 36.1–37.9; O2SAT 96–98
[2023-02-17] MEDS: Acetaminophen 500 MG Tablet 1000 MG PO ×2 (03:40→17:19)
[2023-02-17] MEDS: Benzocaine/Lanolin/Aloe Vera 1 SPRAY EACH TOPICAL (03:51)
--- NOTE | 2023-02-17 10:23 | PCM.PN.OB ---
Subjective Subjective Patient doing well without complaints. Tolerating PO. Ambulating and voiding without difficulty. feeding well. Denies chest pain, shortness of breath, calf pain/swelling, fevers, chills, lightheadedness. Objective Data Objective Data Vital Signs: Vital Signs Temp Pulse Resp BP Pulse Ox O2 Del Method 97.1 F L 82 16 120/61 98 Room Air 02/17/23 09:12 02/17/23 09:12 02/17/23 09:12 02/17/23 09:12 02/17/23 03:41 02/17/23 03:41 Oxygen Delivery Method Room Air Weight: 237 lb Body Mass Index (BMI) 37.0 Intake & Output: Intake and Output for Last 24 Hours 02/15/23 02/16/23 02/17/23 23:59 23:59 23:59 Intake Total 2736.67 / 2736.67 1250 / 1250 Output Total 1650 / 1650 1500 / 1500 Balance 1086.67 / 1086.67 -250 / -250 Lab / Micro Data 02/16/23 07:45 Labs: Laboratory Results - last 24 hr 02/16/23 07:45: Blood Type A POSITIVE, Antibody Screen NEGATIVE ROS Constitutional Constitutional: Reports systems reviewed and no addt'l complaints, except as documented Cardiovascular Cardiovascular: Reports systems reviewed and no addt'l complaints, except as documented Respiratory/Chest Respiratory/Chest: Reports systems reviewed and no addt'l complaints, except as documented Gastrointestinal Gastrointestinal: Reports systems reviewed and no addt'l complaints, except as documented Physical Exam Const alert, oriented x3 and no apparent distress HEENT Head and Scalp: atraumatic Resp normal respiratory effort GI soft to palpation and non-tender Bimanual Exam - Vag & Uterus: uterus non-tender Uterus Palpation: uterus fundus firm (below Umbilicus) Assessment & Plan (1) Vaginal delivery: 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 routine post delivery care 2. breast feeding- support given 3. rh positive 4. rubella immune
[2023-02-18 02:00] VITALS: BP 128/64; PULSE 70; RESP 16; TEMP 37.1; O2SAT 98
--- NOTE | 2023-02-18 07:05 | PCM.PN.OB ---
Subjective Subjective Patient doing well without complaints. Tolerating PO. Ambulating and voiding without difficulty. feeding well. Denies chest pain, shortness of breath, calf pain/swelling, fevers, chills, lightheadedness. Objective Data Objective Data Vital Signs: Vital Signs Temp Pulse Resp BP Pulse Ox O2 Del Method 98.7 F 70 16 128/64 H 98 Room Air 02/18/23 02:00 02/18/23 02:00 02/18/23 02:00 02/18/23 02:00 02/18/23 02:00 02/18/23 02:00 Oxygen Delivery Method Room Air Weight: 237 lb Body Mass Index (BMI) 37.0 Intake & Output: Intake and Output for Last 24 Hours 02/16/23 02/17/23 02/18/23 23:59 23:59 23:59 Intake Total 2736.67 / 2736.67 1250 / 1250 Output Total 1650 / 1650 2500 / 2500 Balance 1086.67 / 1086.67 -1250 / -1250 Lab / Micro Data 02/16/23 07:45 ROS Constitutional Constitutional: Reports systems reviewed and no addt'l complaints, except as documented Cardiovascular Cardiovascular: Reports systems reviewed and no addt'l complaints, except as documented Respiratory/Chest Respiratory/Chest: Reports systems reviewed and no addt'l complaints, except as documented Gastrointestinal Gastrointestinal: Reports systems reviewed and no addt'l complaints, except as documented Physical Exam Const alert, oriented x3 and no apparent distress Resp normal respiratory effort GI soft to palpation and non-tender Bimanual Exam - Vag & Uterus: uterus non-tender Uterus Palpation: uterus fundus firm (below Umbilicus) Assessment & Plan (1) Vaginal delivery: 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 routine post delivery care 2. breast feeding- support given 3. rh positive 4. rubella immune
[2023-02-18 08:00] VITALS: BP 115/58; PULSE 100; RESP 16; TEMP 36.4; O2SAT 100
[2023-02-18] MEDS: Acetaminophen 500 MG Tablet 1000 MG PO (08:06)
== END 2023-02-18 10:55 | disposition home or self-care (01) | DRG 807 ==
PROVIDERS: Admitting Provider Obstetrics & Gynecology; Visit Provider Obstetrics & Gynecology
DX: O48.0 Post-term pregnancy (principal); Z37.0 Single live birth; E66.8 Other obesity; O70.0 First degree perineal laceration during delivery; O99.214 Obesity complicating childbirth; Z87.891 Personal history of nicotine dependence; Z3A.41 41 weeks gestation of pregnancy
CPT/HCPCS: 59025; 59050; 85025; 86780; 86850; 86900; 86901; 99221; J7120; G0378; J3490

== ENCOUNTER → 2023-04-03 | Outpatient (CLI) | payer BC, OTHER, SELFPAY ==
--- OUTSIDE RECORDS SUMMARY | 2023-04-03 18:02 | XMS RPT_ITS | CCD ---
Author Name Unknown Address [address] [place] [address] [address] [place] [address] Organization [facility] Care Team Providers Care Continuity Person Name Role Phone NO PRIMARY CARE, Primary Care Unavailable FRIDA RICE Referring Unavailable JIM GIORDANO Attending Unavailable Encounters Encounter Date Encounter Type Care Provider Facility Start: 09-14-2022 End: 09-14-2022 ambulatory NO PRIMARY CARE [facility] Payers Date Payer Category Payer Unknown [id number] Unknown [id number] Summary Purpose Family History No Family History Records Found Advance Directives No Advanced Directives Records Found Additional Source Comments INFORMATION SOURCE (unrecogn ized section and content) FOR RECORDS PERTAINING TO PATIENTS WHO ARE OR HAVE BEEN ENROLLED IN A CHEMICAL DEPENDENCY/SUBSTANCEABUSE PROGRAM, SOME INFORMATION MAY BE OMITTED. This clinical summary was aggregated from multiple sources. Caution should be exercised in using it in the provision of clinical care. This summary normalizes information from multiple sources, and as a consequence, information in this document may materially change the coding, format and clinical context of patient data. In addition, data may be omitted in some cases. CLINICAL DECISIONS SHOULD BE BASED ON THE PRIMARY CLINICAL RECORDS. [facility]. provides no warranty or guarantee of the accuracy or completeness of information in this document.
[2023-04-10 21:07] LABS: HPV APTIMA, High Risk Positive (Negative)
[2023-04-10 21:55] LABS: HPV Reflexed? YES, CHARGE PATIENT
== END | disposition home or self-care (01) ==
LOC: LABSPEC 16:36
PROVIDERS: Referring Provider Obstetrics & Gynecology; Visit Provider Obstetrics & Gynecology
DX: Z12.4 Encounter for screening for malignant neoplasm of cervix (principal)
CPT/HCPCS: 87624; 88175; G0145